=== PATIENT | male | born 1965 | race Caucasian/White ===

== ENCOUNTER → 2018-08-19 | Outpatient (CLI) | payer BC ==
[~2018-08-19] MED LIST: IOHEXOL 350 MG/ML 100ML IJ ONE; METOPROLOL TARTRATE 1MG/1ML-5ML VIAL IV ONE; NITROGLYCERIN 0.4 MG SL TAB SL ONE
== END | disposition home or self-care (01) ==
LOC: CT 09:07
PROVIDERS: ATTEND Specialist
DX: R91.1 Solitary pulmonary nodule (principal); R94.30 Abnormal result of cardiovascular function study, unspecified
CPT/HCPCS: 75571; 75574; Q9967